=== PATIENT | male | born 2005 | race Two or more races ===

== ENCOUNTER 2024-05-17 12:31 | Emergency (ER) | payer OTHER ==
[~2024-05-17] VITALS: Ht 180.3 cm; Wt 81.6 kg
[2024-05-17 12:54] VITALS: BP 128/86; O2SAT 98
[2024-05-17] MEDS ORDERED: CEFTRIAXONE SODIUM 2,000 MG VIAL ONE (13:13)
[2024-05-17] MEDS ORDERED: CEFTRIAXONE SODIUM 2,000 MG VIAL IV ONE (13:15)
[2024-05-17 13:31] LABS: HEMATOCRIT 45.5 % (39.0-48.0); HEMOGLOBIN 15.4 g/dL (13-16.00); MEAN CELL VOLUME 87.4 fL (80.0-100.00); MEAN CORPUSCULAR HEMOGLOBIN 29.5 pg (27.00-32.0); MEAN CORPUSCULAR HGB CONC 33.7 g/dl (32.0-36.0); PLATELET COUNT 179 K/uL (150-450); RED BLOOD COUNT 5.21 M/uL (4.00-6.00); RED CELL DISTRIBUTION WIDTH 13.9 % (11.5-14.5)
[2024-05-17 14:02] LABS: ALBUMIN 4.3 gm/dL (3.4-5.0); BILIRUBIN TOTAL 1.27 mg/dL (0.3-1.2); CALCIUM 9.5 mg/dL (8.5-10.1); CREATININE SERUM 1.31 mg/dL (0.70-1.30); GFR 70.49; GLOBULINA 3.9 G/DL (2.4-3.5); POTASSIUM 4.22 mEq/L (3.5-5.1); TOTAL PROTEIN 8.2 gm/dL (6.4-8.2)
== END 2024-05-17 14:40 | disposition home or self-care (01) ==
LOC: ER 12:34 → EMR PED 12:42 → ER 12:42 → EMR PED 14:40
PROVIDERS: Emergency Medicine Pediatric Emergency Medicine
DX: J03.90 Acute tonsillitis, unspecified (principal); Z20.822 Contact with and (suspected) exposure to COVID-19

== ENCOUNTER 2024-10-21 09:39 | Inpatient (IN) | payer OTHER ==
[~2024-10-21] VITALS: Ht 182.9 cm; Wt 86.2 kg
--- NOTE | 2024-10-21 10:39 | NUR ---
SE RECIBE PTE ALERTA, ORIENTADO X3 Y AMBULANDO ACOMPANADO POR MADRE. PTE REFIERE FIEBRE Y MALESTAR GENERAL DESDE EL GIORGI, SE MIDEN S/V Y SE UBICA. SE ADMINISTRA 1000MG DE TYLENOL.
[2024-10-21] MEDS ORDERED: ACETAMINOPHEN 500 MG GEL..CAP PO ONE (10:40)
[2024-10-21] MEDS ORDERED: 0.9 % SODIUM CHLORIDE 1,000 ML IV SCH ×3 (11:15→12:45)
[2024-10-21] MEDS ORDERED: ACETAMINOPHEN 500 MG GEL..CAP PO PRN (11:15)
--- NOTE | 2024-10-21 12:09 | NUR ---
SE EDUCA A PACIENTE SOBRE ORDENES MEDICAS. SE REALIZA VENOPUNCION PARA COLECTAR MUESTRAS DE LAB Y SE CANALIZA VENA PERIFERICA PARA ADMINISTRACION DE MEDICEMENTOS
[2024-10-21 12:13] LABS: BASO % 0.9 % (0.1-1.2); EOS # 0.01 (0.04-0.54); EOS % 0.4 % (0.7-7.0); HEMATOCRIT 40.3 % (40.1-51.0); LYMPH % 22.4 % (19.3-53.1); MEAN CORPUSCULAR HEMOGLOBIN 28.6 pg (25.6-32.2); MONO # 0.41 (0.24-0.82); NEUT # 1.26 (1.56-6.13); RED CELL DISTRIBUTION WIDTH 13.1 % (11.6-14.4)
[2024-10-21 12:14] LABS: MONO % 18.4 % (4.7-12.5); PLATELET COUNT 59 K/uL (163-369)
[2024-10-21 12:15] LABS: NEUT % 56.6 % (34.0-71.1)
[2024-10-21 12:30] LABS: INFLUENZA A AG NEGATIVE (NEGATIVE); INFLUENZA B AG NEGATIVE (NEGATIVE)
[2024-10-21 12:43] LABS: ALBUMIN 3.5 gm/dL (3.4-5.0); BILIRUBIN TOTAL 0.75 mg/dL (0.3-1.2); CALCIUM 8.5 mg/dL (8.5-10.1); CREATININE SERUM 1.24 mg/dL (0.70-1.30); GFR 74.32; GLOBULINA 3.7 G/DL (2.4-3.5); POTASSIUM 4.01 mEq/L (3.5-5.1); TOTAL PROTEIN 7.2 gm/dL (6.4-8.2)
[2024-10-21 13:01] LABS: COVID-19 AG NEGATIVE (NEGATIVE)
[2024-10-21] MEDS ORDERED: DEXTROSE 5 % AND 0.9 % NACL 1,000 ML IV SCH (13:30)
[2024-10-21 14:27] VITALS: BP 131/86; O2SAT 100
[2024-10-21 15:16] VITALS: BP 115/85
[2024-10-21 16:30] VITALS: BP 120/72; O2SAT 100
[2024-10-21] MEDS ORDERED: FAMOTIDINE/PF 20 MG/2 ML VIAL IV PUSH SCH (17:00)
[2024-10-21] MEDS ORDERED: ONDANSETRON HCL 2 MG/ML VIAL IV SCH (17:37)
[2024-10-21] MEDS ORDERED: LACTOBACILLUS ACIDOPHILUS 1 CAP CAP PO SCH (17:40)
[2024-10-21] MEDS ORDERED: ONDANSETRON HCL 2 MG/ML VIAL ONE (18:31)
[2024-10-21 20:00] VITALS: BP 115/79; O2SAT 99
[2024-10-22] VITALS: BP 96/60; O2SAT 99
[2024-10-22 04:30] VITALS: BP 93/53; O2SAT 99
[2024-10-22 07:52] LABS: BASO % 0.3 % (0.1-1.2); EOS # 0.04 (0.04-0.54); EOS % 1.3 % (0.7-7.0); HEMATOCRIT 38.3 % (40.1-51.0); LYMPH # 1.06 (1.18-3.74); LYMPH % 34.2 % (19.3-53.1); MEAN CORPUSCULAR HEMOGLOBIN 28.6 pg (25.6-32.2); MONO # 1.24 (0.24-0.82); NEUT # 0.71 (1.56-6.13); NEUT % 22.9 % (34.0-71.1); RED BLOOD COUNT 4.55 M/uL (4.63-6.08); RED CELL DISTRIBUTION WIDTH 13.3 % (11.6-14.4)
[2024-10-22 08:05] LABS: ALBUMIN 2.9 gm/dL (3.4-5.0); BILIRUBIN TOTAL 0.35 mg/dL (0.3-1.2); CALCIUM 7.6 mg/dL (8.5-10.1); CREATININE SERUM 0.99 mg/dL (0.70-1.30); GFR 96.37; GLOBULINA 2.7 G/DL (2.4-3.5); POTASSIUM 4.01 mEq/L (3.5-5.1); TOTAL PROTEIN 5.6 gm/dL (6.4-8.2)
[2024-10-22 08:23] LABS: PLATELET COUNT 49 K/uL (163-369)
[2024-10-22] MEDS ORDERED: ONDANSETRON HCL 2 MG/ML VIAL IV PRN (08:24)
[2024-10-22] MEDS ORDERED: PANTOPRAZOLE SODIUM 40 MG/VIAL VIAL IV SCH (09:00)
[2024-10-22] MEDS ORDERED: PRAMOXINE HCL/CALAMINE 180 ML BOTTLE TOP PRN (09:30)
[2024-10-22] MEDS ORDERED: hydrOXYzine HCL 10 MG TABLET PO PRN (09:30)
[2024-10-22 09:50] VITALS: BP 109/71; O2SAT 100
[2024-10-22 15:30] VITALS: BP 116/78; O2SAT 99
[2024-10-22 20:00] VITALS: BP 108/71; O2SAT 97
[2024-10-23 00:30] VITALS: BP 95/58
[2024-10-23 05:00] VITALS: BP 117/83; O2SAT 99
[2024-10-23 06:45] LABS: BASO % 0.6 % (0.1-1.2); EOS # 0.01 (0.04-0.54); EOS % 0.2 % (0.7-7.0); HEMATOCRIT 39.3 % (40.1-51.0); HEMOGLOBIN 13.5 g/dL (13.7-17.5); LYMPH # 2.18 (1.18-3.74); LYMPH % 44.8 % (19.3-53.1); MEAN CORPUSCULAR HEMOGLOBIN 28.4 pg (25.6-32.2); MONO # 0.43 (0.24-0.82); MONO % 8.8 % (4.7-12.5); NEUT # 2.19 (1.56-6.13); RED BLOOD COUNT 4.75 M/uL (4.63-6.08); RED CELL DISTRIBUTION WIDTH 13.2 % (11.6-14.4)
[2024-10-23 07:16] LABS: INR 1.15; PLATELET COUNT 47 K/uL (163-369); PROTHROMBIN TIME 12.4 SECONDS (9.0-11.5)
[2024-10-23 07:17] LABS: PARTIAL THROMBOPLASTIN TIME 39.3 SECONDS (22.0-34.0)
[2024-10-23 07:18] LABS: ALBUMIN 3.2 gm/dL (3.4-5.0); BILIRUBIN TOTAL 0.61 mg/dL (0.3-1.2); CALCIUM 8.6 mg/dL (8.5-10.1); CREATININE SERUM 1.11 mg/dL (0.70-1.30); GFR 84.45; GLOBULINA 3.4 G/DL (2.4-3.5); POTASSIUM 3.98 mEq/L (3.5-5.1); TOTAL PROTEIN 6.6 gm/dL (6.4-8.2)
[2024-10-23 08:56] VITALS: BP 100/59; O2SAT 98
[2024-10-23 12:22] VITALS: BP 103/62; O2SAT 97
[2024-10-23 15:30] VITALS: BP 109/71; O2SAT 99
[2024-10-23 20:00] VITALS: BP 113/65; O2SAT 99
[2024-10-24 00:25] VITALS: BP 116/72; O2SAT 98
[2024-10-24 04:00] VITALS: BP 123/79; O2SAT 98
[2024-10-24 06:10] LABS: BASO % 0.5 % (0.1-1.2); EOS # 0.03 (0.04-0.54); EOS % 0.7 % (0.7-7.0); HEMATOCRIT 37.5 % (40.1-51.0); LYMPH # 2.14 (1.18-3.74); LYMPH % 48.5 % (19.3-53.1); MEAN CORPUSCULAR HEMOGLOBIN 28.7 pg (25.6-32.2); MONO # 0.47 (0.24-0.82); MONO % 10.7 % (4.7-12.5); NEUT # 1.73 (1.56-6.13); NEUT % 39.1 % (34.0-71.1); RED BLOOD COUNT 4.53 M/uL (4.63-6.08); RED CELL DISTRIBUTION WIDTH 13.4 % (11.6-14.4)
[2024-10-24 07:02] LABS: BILIRUBIN TOTAL 0.63 mg/dL (0.3-1.2); CALCIUM 8.4 mg/dL (8.5-10.1); CREATININE SERUM 1.01 mg/dL (0.70-1.30); GFR 94.18; GLOBULINA 3.7 G/DL (2.4-3.5); POTASSIUM 4.07 mEq/L (3.5-5.1); TOTAL PROTEIN 6.7 gm/dL (6.4-8.2)
[2024-10-24 07:16] LABS: PLATELET COUNT 56 K/uL (163-369)
[2024-10-24 08:36] VITALS: BP 100/55; O2SAT 98
[2024-10-24 12:12] VITALS: BP 125/78; O2SAT 98
[2024-10-24 19:37] VITALS: BP 116/76; O2SAT 100
[2024-10-25] VITALS: BP 116/78; O2SAT 98
[2024-10-25 04:00] VITALS: BP 127/78; O2SAT 98
[2024-10-25 07:49] LABS: BASO % 0.7 % (0.1-1.2); EOS # 0.03 (0.04-0.54); EOS % 0.7 % (0.7-7.0); HEMATOCRIT 41.2 % (40.1-51.0); HEMOGLOBIN 14.2 g/dL (13.7-17.5); LYMPH # 1.98 (1.18-3.74); MEAN CORPUSCULAR HEMOGLOBIN 28.6 pg (25.6-32.2); MONO # 0.58 (0.24-0.82); NEUT # 1.86 (1.56-6.13); NEUT % 41.3 % (34.0-71.1); RED BLOOD COUNT 4.96 M/uL (4.63-6.08); RED CELL DISTRIBUTION WIDTH 13.6 % (11.6-14.4)
[2024-10-25 08:00] VITALS: BP 110/70; O2SAT 98
[2024-10-25 08:38] LABS: MONO % 12.9 % (4.7-12.5); PLATELET COUNT 89 K/uL (163-369)
[2024-10-25 08:52] LABS: ALBUMIN 3.4 gm/dL (3.4-5.0); BILIRUBIN TOTAL 0.53 mg/dL (0.3-1.2); CALCIUM 8.6 mg/dL (8.5-10.1); CREATININE SERUM 0.96 mg/dL (0.70-1.30); GFR 99.86; GLOBULINA 3.9 G/DL (2.4-3.5); POTASSIUM 3.67 mEq/L (3.5-5.1); TOTAL PROTEIN 7.3 gm/dL (6.4-8.2)
[2024-10-25 12:30] VITALS: BP 123/78; O2SAT 99
[2024-10-25 16:00] VITALS: BP 121/73; O2SAT 99
[2024-10-25 20:00] VITALS: BP 108/71; O2SAT 97
[2024-10-26] VITALS: BP 112/65; O2SAT 99
[2024-10-26 04:00] VITALS: BP 109/67; O2SAT 98
[2024-10-26 07:51] LABS: BASO % 0.2 % (0.1-1.2); EOS # 0.02 (0.04-0.54); EOS % 0.4 % (0.7-7.0); HEMOGLOBIN 13.9 g/dL (13.7-17.5); LYMPH # 1.48 (1.18-3.74); LYMPH % 32.6 % (19.3-53.1); MEAN CORPUSCULAR HEMOGLOBIN 29.2 pg (25.6-32.2); MONO # 0.67 (0.24-0.82); NEUT # 2.32 (1.56-6.13); NEUT % 51.1 % (34.0-71.1); PLATELET COUNT 132 K/uL (163-369); RED BLOOD COUNT 4.76 M/uL (4.63-6.08); RED CELL DISTRIBUTION WIDTH 13.6 % (11.6-14.4)
[2024-10-26 07:57] LABS: MONO % 14.8 % (4.7-12.5)
[2024-10-26 08:00] VITALS: BP 107/68; O2SAT 98
[2024-10-26 09:10] LABS: ALBUMIN 3.2 gm/dL (3.4-5.0); BILIRUBIN TOTAL 0.49 mg/dL (0.3-1.2); CALCIUM 8.6 mg/dL (8.5-10.1); CREATININE SERUM 0.79 mg/dL (0.70-1.30); GFR 125.04; POTASSIUM 3.88 mEq/L (3.5-5.1); TOTAL PROTEIN 7.2 gm/dL (6.4-8.2)
[2024-10-26] MEDS ORDERED: PROTONIX IV40 MG PO (11:31)
[2024-10-26] MEDS ORDERED: PROTONIX20 MG PO (11:39)
== END 2024-10-26 12:22 | DRG 866 ==
LOC: EMR PED 09:51 → ER 09:51 → PED 12:26
PROVIDERS: General Practice; ADMIT Emergency Medicine; ATTEND Emergency Medicine
PROC: 8E0ZXY6 Isolation (ICD-10-PCS; principal; 2024-10-21)
DX: A90 Dengue fever [classical dengue] (principal)